=== PATIENT | male | born 1985 | race Caucasian/White ===

== ENCOUNTER 2021-11-23 09:34 | Emergency (ER) | payer SELFPAY ==
[2021-11-23] MEDS ORDERED: Sodium Chloride 0.9% 2.5 ML Syringe FLUSH PRN (10:26)
[2021-11-23] MEDS ORDERED: Sodium Chloride 0.9% 10 ML Syringe FLUSH PRN (10:26)
[2021-11-23] MEDS ORDERED: Sodium Chloride 0.9% 1,000 ML IV ONE (10:26)
--- NOTE | 2021-11-23 11:08 | EDM.PDOC ---
ED HPI GENERAL MEDICAL PROBLEM - General Chief Complaint: Genitourinary Problem Stated Complaint: ISSUES IN GROIN AREA Time Seen by Provider: 11/23/21 10:00 Source of Information: Reports: Patient History Limitations: Reports: No Limitations - History of Present Illness INITIAL COMMENTS - FREE TEXT/NARRATIVE: HISTORY AND PHYSICAL: History of present illness: Patient is a 36-year-old male who presents to the ED complaining of pain with urination today and pain with bowel movements x 7 days. Pain with bowel movements started a week ago along with rectal pain in general. Patient state his urine is darker in color. Patient reports associated abdominal pain along the right side, and it waxes and wanes. He also reports some nausea and decreased appetite over the last week. Patient denies change in urine/bowel movement smell, trauma, fever, penile discharge, testicular pain, vomiting, or hemorrhoids. Patient denies sexual activity within the last 4 years so no concern of STI. 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 Patient denies chest pain, shortness of breath, or cough. Denies headache, neck stiff ness, change in vision, syncope, or near syncope. Review of systems: As per history of present illness and below otherwise all systems reviewed and negative. Past medical history: As per history of present illness and as reviewed below otherwise noncontributory. Surgical history: As per history of present illness and as reviewed below otherwise noncontributory. Social history: See social history for further information Family history: As per history of present illness and as reviewed below otherwise noncontributory. Physical exam: General: Patient is alert, oriented, and in no acute distress. Patient sitting comfortably on exam table. Vitals stable and reviewed by me. HEENT: Atraumatic, normocephalic, pupils equal and reactive bilaterally, negative for conjunctival pallor or scleral icterus, mucous membranes moist, throat clear, neck supple, nontender, trachea midline. No drooling or trismus noted. No meningeal signs. No hot potato voice noted. Lungs: Clear to auscultation, breath sounds equal bilaterally, chest nontender. Heart: S1S2, regular rate and rhythm without overt murmur Abdomen: Nondistended. Mild-moderate suprapubic tenderness to palpation. Negative for masses or hepatosplenomegaly. Negative for costovertebral tenderness or rebound tenderness. Pelvis: Stable nontender. Genitourinary: exam performed by JAE Ag observed and supervised directly by me. No testicular tenderness to palpitation. No hernia, masses, lesions, penile drainage. Rectal: Rectal exam performed by JAE Ag observed and supervised directly by me. Severe tenderness to palpation of prostate. No masses, hemorrhoids, lesions. Brown stool. Skin: Intact, warm, dry. No lesions or rashes noted. Extremities: Atraumatic, negative for cords or calf pain. Neurovascular unremarkable. Neuro: Awake, alert, oriented. Cranial nerves II through XII unremarkable. Cerebellum unremarkable. Motor and sensory unremarkable throughout. Exam nonfocal. Medical Decision Making: Patient is a 36-year-old male that presents to the ED today with painful with urination x 1 day and bowel movements x 7 days. Upon arrival to the ED, patient is vitally stable but does have significant tenderness to palpation of prostate on palpation with associated suprapubic tenderness. Will obtain UA, G&C, basic labs and abd/pelvic ct w cont. Was unable to get blood off of IV so lab was going to come drop patient for basic labs. However, he declines any additional needle pokes and thus declining labwork. All risks versus benefits discussed with patient and expresses understanding. UA clear of infection. Does show 100 protein. Pending urine culture/G&C pending. Abd/Pelvic CT w cont shows no evidence of appendicitis. Questionable thickening of the urinary bladder. No hydronephrosis and no renal/ureteral calculi. On reevaluation of patient, he remains vitally stable and comfortable throughout stay in ED. Strict return precautions thoroughly discussed with patient. Discussed importance for follow-up with a primary care provider and urologist. Voices understanding and is agreeable to plan of care. Denies any further questions or concerns at this time. Diagnostics: UA w culture, Abd/Pelvic CT w cont, (Pt declined labwork-all risks versus benefits discussed with patient and expresses understanding) Therapeutics: None (pharmacy is closed today so first dose of antibiotic given here in the emergency room) Prescription: Ciprofloxacin Impression: Acute prostatitis Plan: 1. Take medication as prescribed. You can alternate ibuprofen and Tylenol as directed for pain and discomfort. 2. Follow-up with a primary care provider and urologist as discussed. Return to the ED as needed not as discussed. Definitive disposition and diagnosis as appropriate pending reevaluation and review of above. rectal/lower abdomen Pain Score (Numeric/FACES): 8 - Related Data Allergies Allergy/AdvReac Type Severity Reaction Status Date / Time No Known Allergies Allergy Verified 11/23/21 09:44 Home Meds: Home Meds ClonazePAM [KlonoPIN] 1 mg PO TID 11/23/21 [History] Non-Formulary Medication [NF Drug] 1 each PO DAILY 11/23/21 [History] OLANZapine [Olanzapine] 15 mg PO BEDTIME 11/23/21 [History] Sertraline [Zoloft] 100 mg PO BID 11/23/21 [History] Past Medical History Psychiatric History: Reports: Anxiety, Bipolar, Depression, PTSD - Infectious Disease History Infectious Disease History: Reports: Chicken Pox Social & Family History - Family History Family Medical History: No Pertinent Family History - Tobacco Use Tobacco Use Status *Q: Current Every Day Tobacco User Years of Tobacco use: 20 Packs/Tins Daily: 0.5 - Caffeine Use Caffeine Use: Reports: Energy Drinks - Recreational Drug Use Recreational Drug Use: Yes Recreational Drug Type: Reports: Marijuana/Hashish Other Recreational Drug Type: states has medical card Recreational Drug Use Frequency: Daily ED ROS GENERAL - Review of Systems Review Of Systems: Comprehensive ROS is negative, except as noted in HPI. ED EXAM, GENERAL - Physical Exam Exam: See Below (see dictation) Course - Vital Signs Last Recorded V/S: Last Vital Signs Temp 97.5 F 11/23/21 09:46 Pulse 100 11/23/21 09:46 Resp 20 11/23/21 09:46 BP 150/91 H 11/23/21 09:46 Pulse Ox 100 11/23/21 09:46 - Orders/Labs/Meds Orders: Active Orders 24 hr Category Date Time Status CBC WITH AUTO DIFF [HEME] Stat Lab 11/23/21 10:26 Ordered CHLAMYDIA AND GONORRHEA BY TMA Stat Lab 11/23/21 09:57 Ordered COMPREHENSIVE METABOLIC PN,CMP [CHEM] Stat Lab 11/23/21 10:26 Ordered CULTURE URINE [MREF] Stat Lab 11/23/21 11:58 Ordered LIPASE [CHEM] Stat Lab 11/23/21 10:26 Ordered Sodium Chloride 0.9% [Saline Flush] Med 11/23/21 10:26 Active 10 ml FLUSH ASDIRECTED PRN Sodium Chloride 0.9% [Saline Flush] Med 11/23/21 10:26 Active 2.5 ml FLUSH ASDIRECTED PRN Saline Lock Insert [OM.PC] Stat Oth 11/23/21 10:26 Ordered Medication Orders Sodium Chloride (Sodium Chloride 0.9% 10 Ml Syringe) 10 ml FLUSH ASDIRECTED PRN PRN Reason: Keep Vein Open Sodium Chloride (Sodium Chloride 0.9% 2.5 Ml Syringe) 2.5 ml FLUSH ASDIRECTED PRN PRN Reason: Keep Vein Open Labs: Laboratory Tests 11/23/21 Range/Units 09:57 Urine Color DARK YELLOW Urine Appearance CLEAR Urine pH 7.5 (5.0-8.0) Ur Specific [place] 1.025 (1.001-1.035) Urine Protein 100 H (NEGATIVE) mg/dL Urine Glucose (UA) NEGATIVE (NEGATIVE) mg/dL Urine Ketones NEGATIVE (NEGATIVE) mg/dL Urine Occult Blood NEGATIVE (NEGATIVE) Urine Nitrite NEGATIVE (NEGATIVE) Urine Bilirubin NEGATIVE (NEGATIVE) Urine Urobilinogen 0.2 (<2.0) EU/dL Ur Leukocyte Esterase NEGATIVE (NEGATIVE) Urine RBC 0-1 (0-2/HPF) Urine WBC 0-1 (0-5/HPF) Ur Epithelial Cells RARE (NONE-FEW) Urine Bacteria FEW (NEGATIVE) Urine Mucus LIGHT (NONE-MOD) Urine Sperm PRESENT (NEGATIVE) Meds: Medications Generic Name Dose Route Start Last Admin Trade Name Freq PRN Reason Stop Dose Admin Sodium Chloride 10 ml 11/23/21 10:26 Sodium Chloride 0.9% 10 Ml Syringe FLUSH ASDIRECTED PRN Keep Vein Open Sodium Chloride 2.5 ml 11/23/21 10:26 Sodium Chloride 0.9% 2.5 Ml Syringe FLUSH ASDIRECTED PRN Keep Vein Open Discontinued Medications Generic Name Dose Route Start Last Admin Trade Name Freq PRN Reason Stop Dose Admin Ciprofloxacin 1,000 mg 11/23/21 11:55 Ciprofloxacin 500 Mg Tab PO 11/23/21 11:56 NOW STA Sodium Chloride 1,000 mls @ 999 mls/hr 11/23/21 10:26 Normal Saline IV 11/23/21 11:26 BOLUS ONE Departure - Departure Time of Disposition: 11:56 Disposition: Home, Self-Care 01 Clinical Impression: Acute prostatitis - Discharge Information Referrals: Chandler Amaro MD [Primary Care Provider] - Forms: ED Department Discharge Additional Instructions: The following information is given to patients seen in the emergency department who are being discharged to home. This information is to outline your options for follow-up care. We provide all patients seen in our emergency department with a follow-up referral. The need for follow-up, as well as the timing and circumstances, are variable depending upon the specifics of your emergency department visit. If you don't have a primary care physician on staff, we will provide you with a referral. We always advise you to contact your personal physician following an emergency department visit to inform them of the circumstance of the visit and for follow-up with them and/or the need for any referrals to a consulting specialist. The emergency department will also refer you to a specialist when appropriate. This referral assures that you have the opportunity for follow-up care with a specialist. All of these measure are taken in an effort to provide you with optimal care, which includes your follow-up. Under all circumstances we always encourage you to contact your private physician who remains a resource for coordinating your care. When calling for follow-up care, please make the office aware that this follow-up is from your recent emergency room visit. If for any reason you are refused follow-up, please contact the [facility] at and asked to speak to the emergency department charge nurse. [facility] [address] [place] [id number] [address] [address] Anum Romo DO, FACOS, Urology [address] [address], 5[address] floor 1. Take medication as prescribed. You can alternate ibuprofen and Tylenol as directed for pain and discomfort. 2. Follow-up with a primary care provider and urologist as discussed. Return to the ED as needed not as discussed. Sepsis Event Note (ED) - Evaluation Sepsis Screening Result: No Definite Risk - Focused Exam Vital Signs: Vital Signs Temp Pulse Resp BP Pulse Ox 11/23/21 09:46 97.5 F 100 20 150/91 H 100 - My Orders Last 24 Hours: My Active Orders 11/23/21 09:57 CHLAMYDIA AND GONORRHEA BY TMA Stat 11/23/21 10:26 CBC WITH AUTO DIFF [HEME] Stat COMPREHENSIVE METABOLIC PN,CMP [CHEM] Stat LIPASE [CHEM] Stat Sodium Chloride 0.9% [Saline Flush] 10 ml FLUSH ASDIRECTED PRN Sodium Chloride 0.9% [Saline Flush] 2.5 ml FLUSH ASDIRECTED PRN Saline Lock Insert [OM.PC] Stat 11/23/21 11:58 CULTURE URINE [MREF] Stat - Assessment/Plan Last 24 Hours: My Active Orders 11/23/21 09:57 CHLAMYDIA AND GONORRHEA BY TMA Stat 11/23/21 10:26 CBC WITH AUTO DIFF [HEME] Stat COMPREHENSIVE METABOLIC PN,CMP [CHEM] Stat LIPASE [CHEM] Stat Sodium Chloride 0.9% [Saline Flush] 10 ml FLUSH ASDIRECTED PRN Sodium Chloride 0.9% [Saline Flush] 2.5 ml FLUSH ASDIRECTED PRN Saline Lock Insert [OM.PC] Stat 11/23/21 11:58 CULTURE URINE [MREF] Stat
--- NOTE | 2021-11-23 11:49 | CT ---
Indication: Right lower quadrant pain. Technique: Multiple contiguous axial images were obtained from the lung bases through the symphysis pubis without intravenous contrast enhancement. Please note that all CT scans at this facility use dose modulation, iterative reconstruction, and/or weight-based dosing when appropriate to reduce radiation dose to as low as reasonably achievable. Comparison: None Findings: The lung bases are clear. Heart is normal in size. No pericardial effusion is identified. The liver, spleen, gallbladder, pancreas, adrenals, and kidneys are normal. No intrahepatic biliary ductal dilatation is identified. No hydronephrosis is identified. In the pelvis, the urinary bladder is normal. Thickening of the wall of the urinary bladder is identified. This can be due to lack of distention versus cystitis. The prostate gland is normal. Normal-sized lymph nodes are identified in the right inguinal region as well as the left inguinal region. The small and large bowel are normal in caliber. Mild colonic diverticulosis is identified. The appendix is normal in size. No inflammatory changes are identified in the right lower quadrant. The aorta is normal in caliber. No free fluid or free air is identified within the abdomen or pelvis. Please note, this exam is limited as there is significant motion artifact, but apparently this is the best that the patient continue. Impression: No evidence of appendicitis. Questionable thickening of the urinary bladder. No hydronephrosis and no renal/ureteral calculi. Please note that all CT scans at this facility use dose modulation, iterative reconstruction, and/or weight-based dosing when appropriate to reduce radiation dose to as low as reasonably achievable. Dictated by Clotilde Gonsalves MD @ 11/23/2021 11:47:40 AM (Electronically Signed)
[2021-11-23] MEDS ORDERED: Ciprofloxacin 500 MG Tab PO STA (11:55)
[2021-11-23] MEDS ORDERED: Iopamidol 755 MG/ML 500 ML Multipack Bottle IVPUSH ONE (17:15)
[2021-11-25 13:03] LABS: C.TRACHOMATIS BY TMA Negative (Negative); N.GONORRHOEAE BY TMA Negative (Negative)
== END 2021-11-23 12:25 | disposition home or self-care (01) ==
LOC: MW.ED 09:34
DX: N41.0 Acute prostatitis (principal); Z72.0 Tobacco use
CPT/HCPCS: 74177; 81001; 87086; 87491; 87591; 99284; A9270; Q9967

== ENCOUNTER 2022-02-23 17:20 | Emergency (ER) | payer SELFPAY | END 2022-02-23 18:28 | disposition left against medical advice (07) | LOC: MW.ED 17:20 | DX: Z53.21 Procedure and treatment not carried out due to patient leaving prior to being seen by health care provider (principal) ==

== ENCOUNTER 2022-05-23 11:21 | Emergency (ER) | payer MEDICAID | END 2022-05-23 13:12 | disposition left against medical advice (07) | LOC: MW.ED 11:21 | DX: Z53.21 Procedure and treatment not carried out due to patient leaving prior to being seen by health care provider (principal) | CPT/HCPCS: 73130-26-RT; 73130-RT ==